=== PATIENT | female | born 1930 | race Caucasian/White ===

== ENCOUNTER 2018-03-06 09:09 | Emergency (ER) | payer BC ==
[~2018-03-06] VITALS: Ht 162.6 cm; Wt 72.6 kg
[~2018-03-06 09:09] MED LIST: ASPIRIN81 M2 PO; BENAZEPRIL HCL40 MG PO; CHLORTHALIDONE25 MG PO; COENZYME Q10100 MG PO; CRESTOR10 MG PO; DARIFENACIN ER15 MG PO; LEVOTHYROXIN0.112 M1 PO; NORVASC10 MG PO; PROTONIX40 M1 PO; TOPROL XL25 MG PO; UNICOMPLEX M TA1 TA1 PO
[2018-03-06] MEDS ORDERED: VITAMINC500 PO (09:41)
[2018-03-06] MEDS ORDERED: FISH OIL 1,001000 M2 PO (09:42)
[2018-03-06] MEDS ORDERED: LECITHIN1200 M1 PO (09:42)
[2018-03-06] MEDS ORDERED: PROBIOTIC1 EAC1 PO (09:42)
[2018-03-06] MEDS ORDERED: CALCIUM CITRAT1 EAC7 PO (09:42)
[2018-03-06] MEDS ORDERED: MYRBETRIQ50 MG PO (09:43)
[2018-03-06 11:23] LABS: ABSOLUTE BASOPHILS 0.1 thou/uL (0.0-0.2); ABSOLUTE EOSINOPHILS 0.3 thou/uL (0.0-0.7); ABSOLUTE LYMPHOCYTES 1.5 thou/uL (0.8-5.3); ABSOLUTE MONOCYTES 0.6 thou/uL (0.0-1.2); EOSINOPHILS 3.4 %; HEMOGLOBIN 12.8 gm/dL (12.0-15.0); LYMPHOCYTES 20.6 %; MCH 31.8 pg (26.0-34.0); MCHC 33.7 g/dL (28.0-37.0); MCV 94.6 fL (80.0-100.0); MONOCYTES 8.1 %; MPV 10.3 fl. (7.2-11.1); NUCLEATED RBCS 0 /100WBC; PLATELET COUNT* 177 thou/uL (150-400); POLYS 66.9 %; RBC 4.01 mil/uL (4.20-5.00); RDW-CV 13.8 % (10.5-14.5); WBC 7.5 thou/uL (4.0-11.0)
[2018-03-06 11:34] LABS: ANION GAP 6 mmol/L (7-16); BUN 10 mg/dL (7-18); CALCIUM 10.2 mg/dL (8.5-10.1); CHLORIDE 97 mmol/L (98-107); CO2 31 mmol/L (21-32); CREATININE 0.7 mg/dL (0.6-1.3); GLUCOSE 126 mg/dL (70-99); POTASSIUM 4.2 mmol/L (3.5-5.1); SODIUM 134 mmol/L (136-145)
[2018-03-06 11:41] LABS: ALBUMIN 4.2 g/dL (3.4-5.0); ALKALINE PHOSPHATASE 57 U/L (46-116); LIPASE 86 U/L (73-393); SGOT 24 U/L (15-37); SGPT 25 U/L (30-65); TOTAL BILIRUBIN 0.5 mg/dL (<0.1-1.0); TOTAL PROTEIN 8.1 g/dL (6.4-8.2); TROPONIN-I LEVEL <0.06 ng/mL (<0.06)
[2018-03-06 11:46] LABS: URINE BILIRUBIN NEGATIVE (Negative); URINE BLOOD NEGATIVE (Negative); URINE CLARITY CLEAR; URINE COLOR YELLOW; URINE GLUCOSE-RANDOM NEGATIVE (Negative); URINE KETONES NEGATIVE (Negative); URINE LEUKOCYTES-REFLEX NEGATIVE (Negative); URINE NITRITE-REFLEX NEGATIVE (Negative); URINE PROTEIN NEGATIVE (Negative); URINE UROBILINOGEN 0.2 E.U./dl (0.2-1.0)
[2018-03-06] MEDS ORDERED: NORCO 5-325 TA1 EACH PO (11:50)
[2018-03-06] MEDS ORDERED: ZOFRAN ODT4 MG DISSOLVE (11:58)
[2018-03-06 12:10] VITALS: BP 126/72
== END 2018-03-06 12:19 | disposition home or self-care (01) ==
LOC: M.ERS 09:09
PROVIDERS: Emergency Medicine Emergency Medical Services
DX: R10.9 Unspecified abdominal pain (principal); I11.0 Hypertensive heart disease with heart failure; I50.9 Heart failure, unspecified; E03.9 Hypothyroidism, unspecified; Z88.0 Allergy status to penicillin

== ENCOUNTER → 2018-03-23 | Outpatient (CLI) | payer BC ==
[~2018-03-23] MED LIST changes: +CALCIUM CITRAT1 EAC7 PO; +FISH OIL 1,001000 M2 PO; +LECITHIN1200 M1 PO; +MYRBETRIQ50 MG PO; +NORCO 5-325 TA1 EACH PO; +PROBIOTIC1 EAC1 PO; +VITAMINC500 PO; +ZOFRAN ODT4 MG DISSOLVE
== END ==
LOC: M.RAD 10:37
DX: Z12.31 Encounter for screening mammogram for malignant neoplasm of breast (principal)

== ENCOUNTER → 2018-04-24 | Outpatient (CLI) | payer BC ==
--- NOTE | 2018-04-24 11:38 | 2DMMODE ---
[place] [address] 2 D/M-MODE ECHOCARDIOGRAM Name: DANTE MCCRARY Nelson Room: [facility]#: [id number] Admission: 04/24/18 Attend Phys: Madyson Walker, Discharge: Date of : 34 Date of Service: 04/24/18 1138 Report #: [id number] THIS REPORT FOR: //name// APPROVED REPORT Study performed: 04/24/2018 10:03:21 EXAM: Comprehensive 2D, Doppler, and color-flow Echocardiogram Patient Location: Out-Patient Status: routine BSA: 1.78 HR: 70 bpm BP: 132/70 mmHg Other Information Study Quality: Good Indications Aortic Valve Disease 2D Dimensions LVEF(%): 56.39 (>50%) IVSd: 11.71 (7-11mm) LVOT Diam: 20.16 (18-24mm) LVDd: 32.37 mm PWd: 11.18 (7-11mm) Ascending Ao: 31.34 (22-36mm) LVDs: 23.12 (25-40mm) Aortic Root: 22.78 mm Hansen's LVEF: 56.39 % Volumes Left Atrial Volume (Systole) LA ESV Index: 19.70 mL/m2 Aortic Valve AoV Peak Bryon.: 4.26 m/s AO Peak Gr.: 72.57 mmHg LVOT Max P.53 mmHg AO Mean Gr.: 42.72 mmHg LVOT Mean P.00 mmHg LVOT Max V: 1.18 m/s AO V2 VTI: 94.53 cm LVOT Mean V: 0.80 m/s ZHANNA (VTI): 0.97 cm2 LVOT V1 VTI: 28.80 cm AI Gray: 2.58 m/s2 AI PHT: 450.48 [place] [address] 2 D/M-MODE ECHOCARDIOGRAM Name: PAMELAEMMADANTE Nelson Room: [facility]#: [id number] Admission: 04/24/18 Attend Phys: Madyson Walker, Discharge: Date of : 34 Date of Service: 04/24/18 1138 Report #: [id number] E/A Ratio: 0.57 MV Decel. Time: 368.81 ms MV E Max Bryon.: 0.59 m/s MV PHT: 106.95 ms MVA (PHT): 2.06 cm2 TDI E/Lateral E': 6.56 E/Medial E': 7.38 Medial E' Bryon.: 0.08 m/s Lateral E' Bryon.: 0.09 m/s Pulmonary Valve PV Peak Bryon.: 1.08 m/s PV Peak Gr.: 4.66 mmHg Tricuspid Valve TR Peak Gr.: 40.81 mmHg RVSP: 45.81 mmHg Left Ventricle The left ventricle is normal size. There is normal LV segmental wall motion. Mild concentric left ventricular hypertrophy. Left ventricular systolic function is normal. The left ventricular ejection fraction is within the normal range. LVEF is 55-60%. Grade I - abnormal relaxation pattern. Right Ventricle The right ventricle is normal size. The right ventricular systolic function is normal. Atria The left atrium size is normal. The right atrium size is normal. Aortic Valve Aortic valve is moderately calcified. Mild aortic regurgitation. severe aortic stenosis. Mitral Valve The mitral valve is normal in structure. Trace mitral regurgitation. No evidence of mitral valve stenosis. Tricuspid Valve The tricuspid valve is normal in structure. Mild tricuspid regurgitation. The RVSP is _45.8 mmHg. Pulmonic Valve The pulmonary valve is normal in structure[place] [address] 2 D/M-MODE ECHOCARDIOGRAM Name: DANTE MCCRARY Room: [facility]#: [id number] Admission: 04/24/18 Attend Phys: Madyson Walker, Discharge: Date of : 34 Date of Service: 04/24/18 1138 Report #: [id number] regurgitation. Great Vessels The aortic root is normal in size. IVC is normal in size and collapses with >50% inspiration Pericardium There is no pericardial effusion. <Conclusion> Mild concentric left ventricular hypertrophy. LVEF is 55-60%. Mild aortic regurgitation. severe aortic stenosis. Mild tricuspid regurgitation. The RVSP is _45.8 mmHg. <ELECTRONICALLY SIGNED> By: Nico Jimenez MD, [facility] 04/24/18 1138 1138 1138 Nico Jimenez MD, FACC /INF
== END ==
LOC: M.CRD 09:42
DX: I08.2 Rheumatic disorders of both aortic and tricuspid valves (principal); I09.9 Rheumatic heart disease, unspecified

== ENCOUNTER → 2019-10-15 | Outpatient (CLI) | payer BC ==
--- NOTE | 2019-10-15 17:39 | 2DMMODE ---
[place] [address] 2 D/M-MODE ECHOCARDIOGRAM Name: DANTE MCCRARY Room: [facility]#: [id number] Admission: 10/15/19 Attend Phys: Aureliano Abdalla, Discharge: Date of : 34 Date of Service: 10/15/19 1739 Report #: [id number] THIS REPORT FOR: //name// APPROVED REPORT Study performed: 10/15/2019 10:45:09 EXAM: Comprehensive 2D, Doppler, and color-flow Echocardiogram Patient Location: Out-Patient BSA: 1.80 HR: 65 bpm BP: 130/70 mmHg Other Information Study Quality: Good Indications Aortic Valve Disease 2D Dimensions IVSd: 14.83 (7-11mm) LVOT Diam: 20.52 (18-24mm) LVDd: 32.20 mm PWd: 11.02 (7-11mm) Ascending Ao: 29.84 (22-36mm) LVDs: 21.94 (25-40mm) Aortic Root: 24.63 mm Volumes Left Atrial Volume (Systole) LA ESV Index: 24.90 mL/m2 Aortic Valve AoV Peak Bryon.: 3.86 m/s AO Peak Gr.: 59.58 mmHg LVOT Max P.80 mmHg AO Mean Gr.: 37.14 mmHg LVOT Mean P.29 mmHg LVOT Max V: 1.10 m/s AO V2 VTI: 93.62 cm LVOT Mean V: 0.69 m/s ZHANNA (VTI): 1.05 cm2 LVOT V1 VTI: 29.74 cm AI [place]: 2.05 m/s2 AI PHT: 578.45 ms Mitral Valve E/A Ratio: 0.63 MV Decel. Time: 312.86 ms MV E Max Bryon.: 0.68 m/[place] [address] 2 D/M-MODE ECHOCARDIOGRAM Name: DANTE MCCRARY Room: [facility]#: [id number] Admission: 10/15/19 Attend Phys: Aureliano Abdalla, Discharge: Date of : 34 Date of Service: 10/15/19 1739 Report #: [id number] MV PHT: 90.73 ms MVA (PHT): 2.42 cm2 TDI E/Lateral E': 8.50 E/Medial E': 9.71 Medial E' Bryon.: 0.07 m/s Lateral E' Bryon.: 0.08 m/s Pulmonary Valve PV Peak Bryon.: 0.95 m/s PV Peak Gr.: 3.57 mmHg Tricuspid Valve RAP Estimate: 5.00 mmHg TR Peak Gr.: 27.62 mmHg RVSP: 32.62 mmHg PA Pressure: 32.62 mmHg Left Ventricle The left ventricle is normal size. There is normal LV segmental wall motion. There is normal left ventricular wall thickness. Left ventricular systolic function is normal. LVEF is 55-60%. Grade I - abnormal relaxation pattern. Right Ventricle The right ventricle is normal size. The right ventricular systolic function is normal. Atria Left atrium is mildly dilated. The right atrium size is normal. Aortic Valve Aortic valve is moderate to severely calcified. Mild aortic regurgitation. Moderate aortic stenosis. Mitral Valve Mild mitral annular calcification. There is no mitral valve regurgitation noted. No evidence of mitral valve stenosis. Tricuspid Valve The tricuspid valve is normal in structure. Mild tricuspid regurgitation. Pulmonic Valve The pulmonary valve is normal in structure. There is no pulmonic [place] [address] 2 D/M-MODE ECHOCARDIOGRAM Name: DANTE MCCRARY Room: [facility]#: [id number] Admission: 10/15/19 Attend Phys: Aureliano Abdalla, Discharge: Date of : 34 Date of Service: 10/15/19 1739 Report #: [id number] Great Vessels The aortic root is normal in size. IVC is normal in size and collapses >50% with inspiration. Pericardium There is no pericardial effusion. <Conclusion> The left ventricle is normal size. There is normal left ventricular wall thickness. Left ventricular systolic function is normal. LVEF is 55-60%. Grade I - abnormal relaxation pattern. Left atrium is mildly dilated. Aortic valve is moderate to severely calcified. Mild aortic regurgitation. Moderate aortic stenosis. Mild mitral annular calcification. Mild tricuspid regurgitation. IVC is normal in size and collapses >50% with inspiration. <ELECTRONICALLY SIGNED> By: Aureliano Abdalla MD, FACC 10/15/19 1739 173 [id number] Aureliano Abdalla MD, FACC /INF
== END ==
LOC: M.CRD 10:47
DX: I08.3 Combined rheumatic disorders of mitral, aortic and tricuspid valves (principal)

== ENCOUNTER → 2020-10-29 | Outpatient (CLI) | payer BC ==
--- NOTE | 2020-10-29 17:38 | 2DMMODE ---
[place] [address] 2 D/M-MODE ECHOCARDIOGRAM Name: DANTE MCCRARY Room: [facility]#: [id number] Admission: 10/29/20 Attend Phys: Aureliano Abdalla, Discharge: Date of : 34 Date of Service: 10/29/20 1738 Report #: [id number] THIS REPORT FOR: cc: Varghese Long Lewis DO Holkins,Salazar Westbrook MD [facility] ~ APPROVED REPORT Study performed: 10/29/2020 09:27:44 EXAM: Comprehensive 2D, Doppler, and color-flow Echocardiogram Patient Location: Out-Patient BSA: 1.84 HR: 68 bpm BP: 128/68 mmHg Other Information Study Quality: Good Indications Aortic Valve Disease 2D Dimensions IVSd: 10.64 (7-11mm) LVOT Diam: 20.70 (18-24mm) LVDd: 45.16 mm PWd: 7.97 (7-11mm) Ascending Ao: 29.13 (22-36mm) LVDs: 28.71 (25-40mm) Aortic Root: 30.36 mm Volumes Left Atrial Volume (Systole) LA ESV Index: 21.00 mL/m2 Aortic Valve AoV Peak Bryon.: 4.24 m/s AO Peak Gr.: 71.81 mmHg LVOT Max P.36 mmHg AO Mean Gr.: 44.07 mmHg LVOT Mean P.65 mmHg LVOT Max V: 1.16 m/s AO V2 VTI: 97.24 cm LVOT Mean V: 0.74 m/s ZHANNA (VTI): 0.97 cm2 LVOT V1 VTI: 27.88 cm AI [place]: 1.73 m/s2 AI PHT: 529.66 [place] [address] 2 D/M-MODE ECHOCARDIOGRAM Name: DANTE MCCRARY Room: [facility]#: [id number] Admission: 10/29/20 Attend Phys: Aureliano Abdalla, Discharge: Date of : 34 Date of Service: 10/29/20 1738 Report #: [id number] Mitral Valve E/A Ratio: 0.69 MV Decel. Time: 348.09 ms MV E Max Bryon.: 0.73 m/s MV PHT: 100.94 ms MVA (PHT): 2.18 cm2 TDI E/Lateral E': 9.13 E/Medial E': 12.17 Medial E' Bryon.: 0.06 m/s Lateral E' Bryon.: 0.08 m/s Pulmonary Valve PV Peak Bryon.: 1.06 m/s PV Peak Gr.: 4.52 mmHg Tricuspid Valve RAP Estimate: 5.00 mmHg TR Peak Gr.: 20.45 mmHg RVSP: 25.45 mmHg PA Pressure: 25.45 mmHg Left Ventricle The left ventricle is normal size. There is normal LV segmental wall motion. There is normal left ventricular wall thickness. Left ventricular systolic function is normal. The left ventricular ejection fraction is within the normal range. LVEF is 55-60%. Grade I - abnormal relaxation pattern. Right Ventricle The right ventricle is normal size. The right ventricular systolic function is normal. Atria The left atrium size is normal. The right atrium size is normal. Aortic Valve Aortic valve is moderate to severely calcified. Mild aortic regurgitation. Severe aortic stenosis. Mitral Valve Mild mitral annular calcification. There is no mitral valve regurgitation noted. No evidence of mitral valve stenosis. Tricuspid Valve The tricuspid valve is normal in structure. Mild tricus[place] [address] 2 D/M-MODE ECHOCARDIOGRAM Name: DANTE MCCRARY Room: [facility]#: [id number] Admission: 10/29/20 Attend Phys: Aureliano Abdalla, Discharge: Date of : 34 Date of Service: 10/29/20 1738 Report #: [id number] Pulmonic Valve The pulmonary valve is normal in structure. There is no pulmonic valvular regurgitation. Great Vessels The aortic root is normal in size. IVC is normal in size and collapses >50% with inspiration. Pericardium There is no pericardial effusion. <Conclusion> The left ventricle is normal size. There is normal left ventricular wall thickness. Left ventricular systolic function is normal. The left ventricular ejection fraction is within the normal range. LVEF is 55-60%. Grade I - abnormal relaxation pattern. The right ventricle is normal size. The left atrium size is normal. Aortic valve is moderate to severely calcified. Mild aortic regurgitation. Severe aortic stenosis. Mild mitral annular calcification. The tricuspid valve is normal in structure. Mild tricuspid regurgitation. IVC is normal in size and collapses >50% with inspiration. There is no pericardial effusion. There is normal LV segmental wall motion. <ELECTRONICALLY SIGNED> By: Salazar Grover MD, FACC 10/29/20 1738 173 173 Salazar Grover MD, FACC /INF
== END ==
LOC: M.CRD 09:38
PROVIDERS: ATTEND Internal Medicine Cardiovascular Disease
DX: I08.2 Rheumatic disorders of both aortic and tricuspid valves (principal); R55 Syncope and collapse

== ENCOUNTER 2020-11-11 15:44 | Emergency (ER) | payer BC ==
[~2020-11-11] VITALS: Ht 162.6 cm; Wt 72.6 kg
[2020-11-11] MEDS ORDERED: METFORMIN HCL500 M3 PO (15:59)
[2020-11-11] MEDS ORDERED: TOPROL XL100 MG PO (15:59)
[2020-11-11] MEDS ORDERED: BENAZEPRIL HCL40 MG PO (16:00)
[2020-11-11 16:42] LABS: ABSOLUTE BASOPHILS 0.1 thou/uL (0.0-0.2); ABSOLUTE EOSINOPHILS 0.2 thou/uL (0.0-0.7); ABSOLUTE LYMPHOCYTES 1.6 thou/uL (0.8-5.3); ABSOLUTE MONOCYTES 0.9 thou/uL (0.0-1.2); ABSOLUTE NEUTROPHILS 6.4 thou/uL (1.6-8.1); BASOPHILS 0.6 %; EOSINOPHILS 2.5 %; HEMATOCRIT 35.8 % (37.0-47.0); LYMPHOCYTES 16.9 %; MCH 32.2 pg (26.0-34.0); MCHC 33.5 g/dL (28.0-37.0); MCV 96.1 fL (80.0-100.0); MONOCYTES 9.7 %; MPV 10.3 fl. (7.2-11.1); NUCLEATED RBCS 0 /100WBC; PLATELET COUNT* 189 thou/uL (150-400); POLYS 70.3 %; RBC 3.73 mil/uL (4.20-5.00); RDW-CV 14.9 % (10.5-14.5); WBC 9.2 thou/uL (4.0-11.0)
[2020-11-11 16:52] LABS: CREATININE 0.8 mg/dL (0.6-1.3); POTASSIUM 4.3 mmol/L (3.5-5.1)
[2020-11-11 17:03] LABS: ALBUMIN 3.8 g/dL (3.4-5.0); TOTAL BILIRUBIN 0.2 mg/dL (<0.1-1.0); TOTAL PROTEIN 7.6 g/dL (6.4-8.2)
[2020-11-11] MEDS ORDERED: NORCO 5-325 TA1 EAC2 PO (18:50)
[2020-11-11 19:03] VITALS: BP 199/73
== END 2020-11-11 19:04 | disposition home or self-care (01) ==
LOC: M.ERS 15:44
PROVIDERS: Nurse Practitioner Family
DX: M71.22 Synovial cyst of popliteal space [Baker], left knee (principal); I11.0 Hypertensive heart disease with heart failure; I50.9 Heart failure, unspecified; E03.9 Hypothyroidism, unspecified; Z79.899 Other long term (current) drug therapy; Z79.82 Long term (current) use of aspirin; Z88.0 Allergy status to penicillin

== ENCOUNTER → 2021-05-04 | Outpatient (CLI) | payer BC ==
[~2021-05-04] MED LIST changes: +METFORMIN HCL500 M3 PO; +NORCO 5-325 TA1 EAC2 PO; +TOPROL XL100 MG PO
--- NOTE | 2021-05-04 11:07 | 2DMMODE ---
[place] [address] 2 D/M-MODE ECHOCARDIOGRAM Name: DANTE MCCRARY Room: [facility]#: [id number] Admission: 05/04/21 Attend Phys: Aureliano Abdalla, Discharge: Date of : 34 Date of Service: 05/04/21 1107 Report #: [id number] THIS REPORT FOR: cc: Varghese Long Lewis DO Holkins,Salazar Westbrook MD [facility] ~ APPROVED REPORT Study performed: 05/04/2021 09:10:05 EXAM: Comprehensive 2D, Doppler, and color-flow Echocardiogram BSA: 1.76 HR: 54 bpm BP: 150/68 mmHg Other Information Study Quality: Adequate Indications Aortic Valve Disease 2D Dimensions IVSd: 10.67 (7-11mm) LVOT Diam: 15.88 (18-24mm) LVDd: 44.92 mm PWd: 10.51 (7-11mm) Ascending Ao: 35.64 (22-36mm) LVDs: 30.70 (25-40mm) Aortic Root: 26.79 mm Volumes Left Atrial Volume (Systole) LA ESV Index: 28.80 mL/m2 Aortic Valve AoV Peak Bryon.: 4.22 m/s AO Peak Gr.: 71.26 mmHg LVOT Max P.12 mmHg AO Mean Gr.: 41.09 mmHg LVOT Mean P.08 mmHg LVOT Max V: 1.01 m/s AO V2 VTI: 104.67 cm LVOT Mean V: 0.67 m/s ZHANNA (VTI): 0.57 cm2 LVOT V1 VTI: 30.11 cm AI [place]: 1.31 m/s2 AI PHT: 641.72 [place] [address] 2 D/M-MODE ECHOCARDIOGRAM Name: DANTE MCCRARY Room: [facility]#: [id number] Admission: 05/04/21 Attend Phys: Aureliano Abdalla, Discharge: Date of : 34 Date of Service: 05/04/21 1107 Report #: [id number] E/A Ratio: 0.63 MV Decel. Time: 319.08 ms MV E Max Bryon.: 0.61 m/s MV PHT: 92.53 ms MVA (PHT): 2.38 cm2 TDI E/Lateral E': 7.63 E/Medial E': 10.17 Medial E' Bryon.: 0.06 m/s Lateral E' Bryon.: 0.08 m/s Pulmonary Valve PV Peak Bryon.: 1.04 m/s PV Peak Gr.: 4.36 mmHg Tricuspid Valve RAP Estimate: 5.00 mmHg TR Peak Gr.: 30.70 mmHg RVSP: 35.70 mmHg PA Pressure: 35.70 mmHg Left Ventricle The left ventricle is normal size. There is normal LV segmental wall motion. There is normal left ventricular wall thickness. Left ventricular systolic function is normal. The left ventricular ejection fraction is within the normal range. LVEF is 60-65%. Grade I - abnormal relaxation pattern. Right Ventricle The right ventricle is normal size. The right ventricular systolic function is normal. Atria Left atrium is mildly dilated. The right atrium size is normal. Aortic Valve Moderate aortic valve sclerosis. Mild aortic regurgitation. Moderate to severe aortic stenosis. Mitral Valve Mild mitral annular calcification. Trace mitral regurgitation. No evidence of mitral valve stenosis. Tricuspid Valve The tricuspid valve is normal in structure. [place] [address] 2 D/M-MODE ECHOCARDIOGRAM Name: DANTE MCCRARY Room: [facility]#: [id number] Admission: 05/04/21 Attend Phys: Aureliano Abdalla, Discharge: Date of : 34 Date of Service: 05/04/21 1107 Report #: [id number] Pulmonic Valve The pulmonary valve is normal in structure. Trace pulmonic regurgitation. Great Vessels The aortic root is normal in size. IVC is normal in size and collapses >50% with inspiration. Pericardium There is no pericardial effusion. <Conclusion> The left ventricle is normal size. There is normal left ventricular wall thickness. Left ventricular systolic function is normal. The left ventricular ejection fraction is within the normal range. LVEF is 60-65%. Grade I - abnormal relaxation pattern. The right ventricle is normal size. Left atrium is mildly dilated. The right atrium size is normal. Moderate aortic valve sclerosis. Mild aortic regurgitation. Moderate to severe aortic stenosis. Mild mitral annular calcification. Trace mitral regurgitation. No evidence of mitral valve stenosis. The tricuspid valve is normal in structure. Mild tricuspid regurgitation. IVC is normal in size and collapses >50% with inspiration. There is no pericardial effusion. There is normal LV segmental wall motion. <ELECTRONICALLY SIGNED> By: Salazar Grover MD, FACC 05/04/21 1107 06 06 Salazar Grover MD, FACC /INF
== END ==
LOC: M.CRD 08:50
PROVIDERS: ATTEND Internal Medicine Cardiovascular Disease
DX: I08.2 Rheumatic disorders of both aortic and tricuspid valves (principal)